=== PATIENT | male | born 1990 | race Two or more races ===

== ENCOUNTER 2020-10-02 11:53 | Emergency (ER) | payer OTHER ==
[~2020-10-02] VITALS: Ht 170.2 cm; Wt 82.6 kg
== END 2020-10-02 17:42 | disposition home or self-care (01) ==
LOC: ER 11:53
DX: B34.9 Viral infection, unspecified (principal); Z20.828 Contact with and (suspected) exposure to other viral communicable diseases

== ENCOUNTER 2020-10-12 11:18 | Emergency (ER) | payer OTHER ==
[~2020-10-12] VITALS: Ht 170.2 cm; Wt 82.1 kg
[2020-10-12] MEDS ORDERED: ZITHROMAX TRI-500 MG PO (16:31)
== END 2020-10-12 17:01 | disposition home or self-care (01) ==
LOC: ER 11:18
DX: J11.1 Influenza due to unidentified influenza virus with other respiratory manifestations (principal); Z11.52 Encounter for screening for COVID-19

== ENCOUNTER 2020-10-29 10:40 | Emergency (ER) | payer OTHER ==
[~2020-10-29] VITALS: Ht 170.2 cm; Wt 82.1 kg
[~2020-10-29 10:40] MED LIST: ZITHROMAX TRI-500 MG PO
== END 2020-10-29 14:20 | disposition home or self-care (01) ==
LOC: ER 10:40
DX: R53.83 Other fatigue (principal); R07.81 Pleurodynia; Z03.818 Encounter for observation for suspected exposure to other biological agents ruled out